=== PATIENT | male | born 1980 | race Caucasian/White ===

== ENCOUNTER 2019-03-01 16:53 | Emergency (ER) | payer OTHER ==
[~2019-03-01] VITALS: Ht 177.8 cm; Wt 100.9 kg
[2019-03-01 17:01] VITALS: BP 142/96
--- NOTE | 2019-03-01 17:15 | NUR ---
Pt to imaging, with tech, via gupop.
--- NOTE | 2019-03-01 17:26 | NUR ---
Pt back to room from imaging.
--- NOTE | 2019-03-01 17:28 | NUR ---
Kavitha GUY, at bedside to evaluate pt.
--- NOTE | 2019-03-01 17:40 | NUR ---
Knee immobilizer placed.
[2019-03-01] MEDS ORDERED: OXYcodone/APAP 5/325MG TABLET ONE (17:49)
--- NOTE | 2019-03-01 17:52 | NUR ---
Pt medicated per MAR.
--- NOTE | 2019-03-01 17:53 | NUR ---
Patient/Caregiver given discharge instructions and they have confirmed that they understand the instructions. Patient ambulatory with steady gait. Addendum: 03/01/19 at 1806 by BERRY Pt wheeled to discharge for comfort. Crutches in hand.
[2019-03-01] MEDS ORDERED: OXYcodone/APAP 5/325MG TABLET PO ONE (18:00)
== END 2019-03-01 18:08 | disposition home or self-care (01) ==
LOC: ED 17:45
DX: M25.462 Effusion, left knee (principal); M25.562 Pain in left knee
CPT/HCPCS: 29505; 99283